=== PATIENT | female | born 2000 | race Caucasian/White ===

== ENCOUNTER 2020-05-27 19:44 | Emergency (ER) | payer MEDICAID ==
[~2020-05-27] VITALS: Ht 165.1 cm; Wt 54.4 kg
[2020-05-27 19:51] VITALS: Ht 165.1 cm; Wt 54.4 kg
[2020-05-27 21:44] VITALS: BP 105/67
== END 2020-05-27 21:44 | disposition home or self-care (01) ==
LOC: ED 19:44
DX: S91.011D Laceration without foreign body, right ankle, subsequent encounter (principal); X58.XXXD Exposure to other specified factors, subsequent encounter
CPT/HCPCS: Q0092